=== PATIENT | female | born 1980 | race Caucasian/White ===

== ENCOUNTER 2024-11-16 18:11 | Emergency (ER) | payer MEDICAID ==
[~2024-11-16] VITALS: Ht 167.6 cm; Wt 99.8 kg
[2024-11-16] MEDS: IV NS 0.9% 1,000 ML BAG IV ONE (18:42)
[2024-11-16 18:43] LABS: PREGNANCY TEST URINE QUAL NEGATIVE (NEGATIVE)
[2024-11-16 18:56] LABS: PLATELET COUNT (AUTO) 261 K/uL (150-450); RED BLOOD CELL COUNT(AUTO) 3.80 MIL/uL (4.0-5.2); RED CELL DISTRIBUTION WIDTH 13.1 % (11.5-15.0); WHITE BLOOD COUNT (AUTO) 4.1 K/uL (4.3-11.0)
[2024-11-16 19:02] LABS: CALCIUM, SERUM 8.8 mg/dL (8.5-10.1); CREATININE 0.7 mg/dL (0.6-1.3); SODIUM SERUM 138 mmol/L (136-145); UREA NITROGEN, BLOOD 12 mg/dL (7-18)
[2024-11-16 21:01] VITALS: BP 142/65; TEMP 98.4; O2SAT 96
== END 2024-11-16 21:15 | disposition home or self-care (01) ==
LOC: ER 18:47
DX: R55 Syncope and collapse (principal); R42 Dizziness and giddiness; R11.0 Nausea; Z85.3 Personal history of malignant neoplasm of breast
CPT/HCPCS: 99285; 96360; 71045; 93005; 85025; 80048; 84703; 36415; 84484 ×2; 82962; J7030